=== PATIENT | female | born 2000 | race Caucasian/White ===

== ENCOUNTER → 2019-08-25 | Outpatient (CLI) | payer SELFPAY ==
--- NOTE | 2019-08-25 15:32 | RADIOLOGY REPORT (SQ) ---
EXAM DESCRIPTION: U/S OB LIMITED COMPLETED DATE/TIME: 08/25/2019 3:20 pm REASON FOR STUDY: Z34.01 ENCNTR FOR SUPRVSN OF NORMAL FIRST PREG Z34.01 ENCNTR FOR SUPRVSN OF DOMINIC L FIRST PREG, FIRST TRIMES COMPARISON: None. TECHNIQUE: Limited transabdominal grayscale ultrasound for evaluation of specific requested obstetri ev parameters. LIMITATIONS: None. FINDINGS: CERVICAL LENGTH: 3.4 cm. Closed. LV P: 2.2 x 2.4 cm. Cm. FHR: 160 beats per minute. PRESENTATION: Variable PLACENTA: Posterior, grade 1. ANATOMY: Not assessed OTHER: There is a live intrauterine gestation of 14 weeks 0 days with an estimated date of delivery o f 02/23/2020 IMPRESSION: LIMITED OBSTETRICAL ULTRASOUND WITH MEASURED PARAMETERS DELINEATED ABOVE. Trimester of : Second trimester - 13 weeks 1 day to 27 weeks 6 days. TECHNICAL DOCUMENTATION: JOB ID: [id number] [employer]- All Rights Reserved Reading location - IP/workstation name: [email or web address]
== END ==
LOC: RAD 14:33
PROVIDERS: ATTEND Midwife
DX: Z34.02 Encounter for supervision of normal first pregnancy, second trimester (principal)
CPT/HCPCS: 76815

== ENCOUNTER 2020-02-02 07:58 | Inpatient (IN) | payer MEDICAID ==
[2020-02-02] MEDS ORDERED: DINOPROSTONE 10 MG VAGINAL INSERT.SR PV ONE (08:42)
[2020-02-02] MEDS ORDERED: MAG HYDROX/AL HYDROX/SIMETH SUSP 30 ML UDCUP PO PRN (08:42)
[2020-02-02] MEDS ORDERED: ACETAMINOPHEN 325 MG TABLET PO PRN (08:42)
[2020-02-02 08:52] LABS: ABSOLUTE EOSINOPHILS # (AUTO) 0.1 10^3/uL (0.0-0.6); ABSOLUTE LYMPHOCYTES (AUTO) 1.9 10^3/uL (0.5-4.7); ABSOLUTE MONOCYTES (AUTO) 1.1 10^3/uL (0.1-1.4); ABSOLUTE NEUT (AUTO) 9.7 10^3/uL (1.7-8.2); BASOPHILS % (AUTO) 0.4 % (0-2); EOSINOPHILS % (AUTO) 0.8 % (0-6); HEMATOCRIT 30.2 % (36.0-47.0); HEMOGLOBIN 11.1 g/dL (12.0-15.5); LYMPHOCYTES % (AUTO) 14.5 % (13-45); MEAN CORPUSCULAR HEMOGLOBIN 33.4 pg (27.0-33.4); MEAN CORPUSCULAR HGB CONC 36.8 g/dL (32.0-36.0); MEAN CORPUSCULAR VOLUME 91 fl (80-97); MONOCYTES % (AUTO) 8.3 % (3-13); PLATELET COUNT 261 10^3/uL (150-450); RED BLOOD COUNT 3.33 10^6/uL (3.72-5.28); RED CELL DISTRIBUTION WIDTH 13.3 % (11.5-14.0); TOTAL CELLS COUNTED % (AUTO) 100 %; WHITE BLOOD COUNT 12.8 10^3/uL (4.0-10.5)
--- NOTE | 2020-02-02 08:53 | Admission Physical ---
Datetime Report Generated by CPN: 02/02/2020 08:53 CURRENT ADMISSION Chief Complaint: Other Chief Complaint Other: IUFD- IOL Indication for Induction: Demise Admit Impression : , Intrauterine ; Intact Membranes; Induction of Labor Admit Plan: Admit to Unit; Initiate Labor Induction Protocol ALLERGIES Medication Allergies: No Medication Allergies: No Known Drug Allergies (02/02/2020) Latex: No Latex Allergies OBSTETRICAL HISTORY : 1 Para: 0 Term: 0 : 0 SAB: 0 IAB: 0 Ectopic: 0 Livin Cesareans: 0 VBACs: 0 Multiple Births: 0 Gestational Diabetes: No Rh Sensitization: No Incompetent Cervix: No SANDRINE: No Infertility: No ART Treatment: No Uterine Anomaly: No IUGR: No Hx Previous C/S: No Macrosomia: No Hx Loss/Stillborn: No PIH: No Hx : No Placenta Previa/Abruption: No Depression/PP Depression: No PTL/PROM: No Post Hemorrhage: No Current Procedures: Ultrasound Obstetrical History Comments: G1-Current IUFD SEE RECORDS Alcohol: No Marijuana : No Cocaine: No Other Illicit Drugs: No Cigarettes: Current Everyday Smoker. [id number] Cigarette Frequency: 5 - 10 per day Cigarette Comments: 1/2 ppd MEDICAL HISTORY Diabetes: No Blood Transfusion: No Pulmonary Disease (Asthma, TB): No Breast Disease: No Hypertension: No Teachers Aide Surgery: No Heart Disease: No Hosp/Surgery: Yes Autoimmune Disorder: No Anesthetic Complications: No Kidney Disease: No Abnormal Pap Smear: No Neuro/Epilepsy: No Psychiatric Disorders: No Other Medical Diseases: No Hepatitis/Liver Disease: No Significant Family History: No Varicosities/Phlebitis: No Trauma/Violence : No Thyroid Dysfunction: No Medical History Comments: Hospitalized for intestinal infection INFECTIOUS HISTORY Gonorrhea: No Genital Herpes: No Chlamydia: No Tuberculosis: No Syphilis: No Hepatitis: No HIV/AIDS Exposure: No Rash or Viral Illness: No HPV: No PHYSICAL EXAM General: Normal HEENT: Normal Neurologic: Normal Thyroid: Normal Heart: Normal Lungs: Normal Breast: Normal Back: Normal Abdomen: Normal Genitourinary Exam: Normal Extremities: Normal DTRs: Normal Pelvic Type: Adequate Vital Signs: Reviewed VAGINAL EXAM Dilatation: 1 Effacement: 25 Station: -3 Contraction Comments: 0 MEMBRANES Membranes: Intact FETUS A Admit Comment: 19 y/o presents for IOL and IUFD at 36 wks. Pt seen in the office yesterday, c/o decreased FM x one week. No FHT's noted yesterday. Pt denies vaginal bleeding or leaking of fluid or contractions. Pt has her mother here today as a support person. VE /th/ -3, vtx. Attending MD is Dr Contreras today PLANS FOR LABOR AND DELIVERY Labor and Delivery: None Pain Management: None Circumcision: N/A INFORMED CONSENT Assignment: Abi Contreras MD Signature: with User ID: [email or web address] : with User ID: [email or web address]
[2020-02-02 09:12] LABS: APPEARANCE,URINE CLOUDY; BILIRUBIN,URINE NEGATIVE (NEGATIVE); GLUCOSE, URINE NEGATIVE (NEGATIVE); KETONES,URINE TRACE mg/dL (NEGATIVE); LEUKOCYTE ESTERASE,URINE LARGE (NEGATIVE); NITRITE,URINE NEGATIVE (NEGATIVE); PROTEIN,URINE 100 mg/dL (NEGATIVE); URINE SPECIFIC GRAVITY 1.027
[2020-02-02] MEDS ORDERED: MISOPROSTOL 0.1 MG TABLET ONE ×3 (09:12→17:18)
[2020-02-02] MEDS ORDERED: MISOPROSTOL 0.2 MG TABLET ONE ×2 (09:12→09:19)
[2020-02-02 09:13] LABS: COLOR,URINE DARK YELLOW
[2020-02-02] MEDS ORDERED: MISOPROSTOL 0.2 MG TABLET PO SCH (09:15)
[2020-02-02] MEDS: RINGERS SOLUTION,LACTATED 1,000 ML IV PRN ×2 (09:17→14:19)
[2020-02-02 09:20] LABS: URINE AMPHETAMINES SCREEN NEGATIVE; URINE BARBITURATES SCREEN NEGATIVE; URINE BENZODIAZEPINES SCREEN NEGATIVE; URINE COCAINE SCREEN NEGATIVE; URINE MARIJUANA (THC) SCREEN NEGATIVE; URINE METHADONE SCREEN NEGATIVE; URINE PHENCYCLIDINE SCREEN NEGATIVE
[2020-02-02] MEDS ORDERED: NALBUPHINE HCL INJ 10 MG/1 ML AMPULE ONE ×3 (10:26→18:33)
[2020-02-02] MEDS ORDERED: NALBUPHINE HCL INJ 10 MG/1 ML AMPULE INJ ONE ×3 (10:28→18:28)
[2020-02-02] MEDS: MISOPROSTOL 0.1 MG TABLET PO SCH ×2 (13:29→17:23)
[2020-02-02] MEDS ORDERED: EPHEDRINE SULFATE INJ 50 MG/1 ML AMPULE ONE (19:51)
[2020-02-02] MEDS ORDERED: FENTANYL/BUPIVACAINE/NS/PF 300 MCG/150 ML RTUINJ EPI ONE (19:52)
[2020-02-02] MEDS ORDERED: BUPIVACAINE HCL 0.25 % INJ/PF (2.5 MG/1 ML) 30 ML VIAL ONE (19:52)
[2020-02-02] MEDS ORDERED: ZOLPIDEM TARTRATE 5 MG TABLET ONE (21:10)
[2020-02-03] MEDS ORDERED: OXYTOCIN 10 UNIT/ML VIAL ONE (03:17)
[2020-02-03] MEDS ORDERED: MISOPROSTOL 0.2 MG TABLET ONE (03:17)
[2020-02-03] MEDS ORDERED: OXYTOCIN/NORMAL SALINE 20 UNIT/1,000 ML RTUINJ ONE (03:18)
[2020-02-03] MEDS ORDERED: LIDOCAINE 1% INJ-PF (10 MG/ML) 30 ML SDV ONE (03:18)
[2020-02-03] MEDS ORDERED: MAGNESIUM HYDROXIDE SUSP 30 ML UDCUP PO PRN (04:55)
[2020-02-03] MEDS ORDERED: ACETAMINOPHEN WITH CODEINE #3 TABLET PO PRN ×2 (04:55)
[2020-02-03] MEDS ORDERED: OXYTOCIN/NORMAL SALINE 20 UNIT/1,000 ML RTUINJ IV PRN (04:55)
[2020-02-03] MEDS ORDERED: MEASLES,MUMPS&RUBELLA VACC/PF 0.5 ML VIAL SUBCUT PRN (04:55)
[2020-02-03] MEDS ORDERED: BENZOCAINE/MENTHOL AEROSOL SPRAY 56 ML TOP PRN (04:55)
[2020-02-03] MEDS ORDERED: PROMETHAZINE HCL 25 MG SUPP.RECT PR PRN (04:55)
[2020-02-03] MEDS ORDERED: PSEUDOEPHEDRINE HCL 30 MG TABLET PO PRN (04:55)
[2020-02-03] MEDS ORDERED: PROMETHAZINE HCL 25 MG TABLET PO PRN (04:55)
[2020-02-03] MEDS ORDERED: ACETAMINOPHEN 650 MG SUPP.RECT PR PRN (04:55)
[2020-02-03] MEDS ORDERED: NA PHOS,M-B/NA PHOS,DI-BA (ADULT) 133 ML ENEMA PR PRN (04:55)
[2020-02-03] MEDS ORDERED: ZOLPIDEM TARTRATE 5 MG TABLET PO PRN (04:55)
[2020-02-03] MEDS ORDERED: PROMETHAZINE HCL INJ 25 MG/1 ML VIAL IV PRN (04:55)
[2020-02-03] MEDS ORDERED: DIPH/PERTUSS(ACELL)/TETANUS VAC/PF 0.5 ML SYR (>=10YO) IM PRN (04:55)
[2020-02-03] MEDS ORDERED: GLYCERIN/WITCH HAZEL LEAF 1 EACH MED..WIPE TP PRN (04:55)
[2020-02-03] MEDS ORDERED: DIPHENHYDRAMINE HCL 25 MG CAPSULE PO PRN (04:55)
[2020-02-03] MEDS ORDERED: DIBUCAINE 1% OINTMENT 28 GM TP PRN (04:55)
[2020-02-03] MEDS ORDERED: IBUPROFEN 800 MG TABLET PO SCH (06:00)
[2020-02-03] MEDS ORDERED: IBUPROFEN 800 MG TABLET ONE (06:10)
--- NOTE | 2020-02-03 06:32 | Delivery Summary ---
Del Sum A-C Datetime Report Generated by CPN: 02/03/2020 06:31 DELIVERY PERSONNEL DELIVERY PERSONNEL: [id number] Delivery Doctor:: Abi Contreras MD Labor and Delivery Nurse:: Park Mendiola RNhealth sciences department chair Nurse:: Peggy Du RN MATERNAL INFORMATION Delivery Anesthesia: Epidural Medications After Delivery: Pitocin Drip 20 Units/1000ml NSS Estimated Blood Loss (ml): 250 Maternal Complications: None Provider Comments: Called to room as patient was completely dilated with urge to push. Pushed through one contraction and delivered a non-viable baby girl. Cord doubly clamped and cut. Placenta delivered shortly there after. EBL 250 cc. Fundus firm. LABOR SUMMARY EDC: 02/24/2020 00:00 No. Babies in Womb: 1 Attempted: No Labor Anesthesia: Epidural LABOR INFORMATION Reason for Induction: Demise Onset of Labor: 02/03/2020 02:40 Complete Dilatation: 02/03/2020 04:15 Cervical Ripening Agents: Other Oxytocin: Induction Group B Beta Strep: unknown Antibiotics # of Doses: n/a Steroids Given: None Reason Steroids Not Administered: Not Applicable MEMBRANES Membranes Rupture Method: Spontaneous Rupture of Membranes: 02/03/2020 04:15 Length of Rupture (hr): 0.12 Amniotic Fluid Color: Bloody Amniotic Fluid Amount: Large Amniotic Fluid Odor: Foul STAGES OF LABOR Stage 1 hr: 1 Stage 1 min: 35 Stage 2 hr: 0 Stage 2 min: 7 Stage 3 hr: 0 Stage 3 min: 5 Total Time in Labor hr: 1 Total Time in Labor min: 47 VAGINAL DELIVERY Episiotomy: None Laceration Extension #1: First Degree Laceration Repair: Yes Laceration Repair Note: 3-0 chromic on an SH needle Sponge Count Correct: N/A CSECTION DELIVERY Primary Indication: N/A Secondary Indication: N/A CSection Incidence: N/A Labor: N/A Elective: N/A CSection Incision: N/A BABY A INFORMATION Delivery Date/Time: 02/03/2020 04:22 Method of Delivery: Vaginal Nurse Controlled Delivery: No Born in Route : No : N/A Forceps: N/A Vacuum Extraction: N/A Shoulder Dystocia : No PRESENTATION/POSITION BABY A Presentation: Cephalic Cephalic Presentation: Vertex Vertex Position: Left Occipital Anterior Breech Presentation: N/A PLACENTA INFORMATION BABY A Placenta Delivery Time : 02/03/2020 04:27 Placenta Method of Delivery: Spontaneous Placenta Status: Delivered SCORES BABY A Heart Rate 1 min: Absent Resp Effort 1 min: Absent Reflex Irritability 1 min: No Response Muscle Tone 1 min: Flaccid Color 1 min: Blue/Pale SCORE 1 MIN: 0 INFANT INFORMATION BABY A Gestational Age at Delivery: 37.0 Gestational Status: Early Term- 37- 38.6 Weeks Outcome : Stillborn Sex: Female WEIGHT/LENGTH BABY A Infant Birthweight (gm): 2298 Weight (lb): 5 Weight (oz): 1 Length (in): 18.50 Length (cm): 46.99 CORD INFORMATION BABY A No. Cord Vessels: 3 Nuchal Cord : Around Neck x1, Tight Cord Blood Taken: Yes-For Eval (Mom's Blood Type - or O+) (Annotations: Data stored by [facility] on behalf of user) Suction: None BABY B INFORMATION : N/A SIGNATURES Signature: with User ID: [email or web address] : with User ID: [email or web address]
[2020-02-03] MEDS: MISOPROSTOL 0.1 MG TABLET PO SCH (08:06)
[2020-02-03] MEDS ORDERED: BENZOCAINE/MENTHOL AEROSOL SPRAY 56 ML ONE (08:10)
--- NOTE | 2020-02-03 08:26 | PDOC DISCHARGE SUMMARY ---
Impression - Admit/DC Date/PCP Admission Date/Primary Care Provider: 02/02/20 07:58 STEVE FRASER CNM Discharge Date: 02/03/20 - Delivered IUFD overnight. Pt doing well this morning, Desires to go home today. UOB, voiding. Pt is O negative, needs Rhogam prior to d/c home - Discharge Diagnosis (1) Rh negative status during in third trimester Is this a current diagnosis for this admission?: Yes (2) (normal spontaneous vaginal delivery) Is this a current diagnosis for this admission?: Yes (3) 36 to 37 weeks gestation of Is this a current diagnosis for this admission?: Yes (4) IUFD at 20 weeks or more of gestation Is this a current diagnosis for this admission?: Yes - Additional Information Resuscitation Status: Full Code Discharge Diet: As Tolerated, Regular Discharge Activity: Activity As Tolerated, No Lifting Over 10 Pounds, Pelvic Rest Referrals: STEVE FRASER CNM [Primary Care Provider] - Prescriptions: Ibuprofen [Motrin 800 mg Tablet] 800 mg PO Q8 #60 tablet Home Medications: Ibuprofen [Motrin 800 mg Tablet] 800 mg PO Q8 #60 tablet 02/03/20 HPI Reason(s) for Admission: Induction of Labor, Demise Procedures: Ultrasound Intrapartum Procedure(s): Spontaneous Vaginal Delivery Results Laboratory Results: WBC 12.8 10^3/uL (4.0-10.5) H 02/02/20 08:40 RBC 3.33 10^6/uL (3.72-5.28) L 02/02/20 08:40 Hgb 11.1 g/dL (12.0-15.5) L 02/02/20 08:40 Hct 30.2 % (36.0-47.0) L 02/02/20 08:40 MCV 91 fl (80-97) 02/02/20 08:40 MCH 33.4 pg (27.0-33.4) 02/02/20 08:40 MCHC 36.8 g/dL (32.0-36.0) H 02/02/20 08:40 RDW 13.3 % (11.5-14.0) 02/02/20 08:40 Plt Count 261 10^3/uL (150-450) 02/02/20 08:40 Lymph % (Auto) 14.5 % (13-45) 02/02/20 08:40 [place] % (Auto) 8.3 % (3-13) 02/02/20 08:40 Eos % (Auto) 0.8 % (0-6) 02/02/20 08:40 Baso % (Auto) 0.4 % (0-2) 02/02/20 08:40 Absolute Neuts (auto) 9.7 10^3/uL (1.7-8.2) H 02/02/20 08:40 Absolute Lymphs (auto) 1.9 10^3/uL (0.5-4.7) 02/02/20 08:40 Absolute Monos (auto) 1.1 10^3/uL (0.1-1.4) 02/02/20 08:40 Absolute Eos (auto) 0.1 10^3/uL (0.0-0.6) 02/02/20 08:40 Absolute Basos (auto) 0.0 10^3/uL (0.0-0.2) 02/02/20 08:40 Seg Neutrophils % 76.0 % (42-78) 02/02/20 08:40 Urine Color DARK YELLOW 02/02/20 08:06 Urine Appearance CLOUDY 02/02/20 08:06 Urine pH 6.0 (5.0-9.0) 02/02/20 08:06 Ur Specific [place] 1.027 02/02/20 08:06 Urine Protein 100 mg/dL (NEGATIVE) H 02/02/20 08:06 Urine Glucose (UA) NEGATIVE mg/dL (NEGATIVE) 02/02/20 08:06 Urine Ketones TRACE mg/dL (NEGATIVE) H 02/02/20 08:06 Urine Blood NEGATIVE (NEGATIVE) 02/02/20 08:06 Urine Nitrite NEGATIVE (NEGATIVE) 02/02/20 08:06 Urine Bilirubin NEGATIVE (NEGATIVE) 02/02/20 08:06 Urine Urobilinogen 2.0 mg/dL (<2.0) H 02/02/20 08:06 Ur Leukocyte Esterase LARGE (NEGATIVE) H 02/02/20 08:06 Urine WBC (Auto) 123 /HPF 02/02/20 08:06 Urine RBC (Auto) 8 /HPF 02/02/20 08:06 Urine Bacteria (Auto) 2+ /HPF 02/02/20 08:06 Squamous Epi Cells Auto 15 /HPF 02/02/20 08:06 Urine Mucus (Auto) MANY /LPF 02/02/20 08:06 Urine Ascorbic Acid NEGATIVE (NEGATIVE) 02/02/20 08:06 Urine Opiates Screen NEGATIVE 02/02/20 08:06 Urine Methadone Screen NEGATIVE 02/02/20 08:06 Ur Barbiturates Screen NEGATIVE 02/02/20 08:06 Ur Phencyclidine Scrn NEGATIVE 02/02/20 08:06 Ur Amphetamines Screen NEGATIVE 02/02/20 08:06 U Benzodiazepines Scrn NEGATIVE 02/02/20 08:06 Urine Cocaine Screen NEGATIVE 02/02/20 08:06 U Marijuana (THC) Screen NEGATIVE 02/02/20 08:06 RPR NONREACTIVE (NONREACTIVE) 02/02/20 08:40 Blood Type O NEGATIVE 02/02/20 08:40 Antibody Screen POSITIVE 02/02/20 08:40 Antibody Identification RHOGAM INDUCED ANTI-D 02/02/20 08:40 Plan Plan of Treatment: d/c to home, pt to f/up with [facility] in 2-4 wks. PPD symptoms reviewed. Time Spent: Less than 30 Minutes
[2020-02-03] MEDS ORDERED: SENNOSIDES/DOCUSATE 8.6-50 MG 1 EACH TABLET ONE (09:55)
[2020-02-03] MEDS ORDERED: DOCUSATE SODIUM 100 MG CAPSULE ONE (09:55)
[2020-02-03] MEDS ORDERED: PRENATAL VITAMIN W DHA CAPSULE PO ONE (09:55)
[2020-02-03] MEDS ORDERED: FERROUS SULFATE 325 MG TABLET PO ONE (09:55)
[2020-02-03] MEDS ORDERED: FERROUS SULFATE 325 MG TABLET PO SCH (10:00)
[2020-02-03] MEDS ORDERED: SENNOSIDES/DOCUSATE 8.6-50 MG 1 EACH TABLET PO SCH (10:00)
[2020-02-03] MEDS ORDERED: DOCUSATE SODIUM 100 MG CAPSULE PO SCH (10:00)
[2020-02-03] MEDS ORDERED: FAMOTIDINE 20 MG TABLET PO SCH (10:00)
[2020-02-03] MEDS ORDERED: PRENATAL VITAMIN W DHA CAPSULE PO SCH (10:00)
[2020-02-03 13:20] VITALS: BP 129/59
== END 2020-02-03 13:40 | disposition home or self-care (01) | DRG 807 ==
LOC: LR 07:58
PROVIDERS: ADMIT Obstetrics & Gynecology; ATTEND Obstetrics & Gynecology
PROC: 10E0XZZ Delivery of Products of Conception, External Approach (ICD-10-PCS; principal; 2020-02-03)
PROC: 0HQ9XZZ Repair Perineum Skin, External Approach (ICD-10-PCS; 2020-02-03)
PROC: 3E0234Z Introduction of Serum, Toxoid and Vaccine into Muscle, Percutaneous Approach (ICD-10-PCS; 2020-02-03)
DX: O36.4XX0 Maternal care for intrauterine death, not applicable or unspecified (principal); Z37.1 Single stillbirth; O69.1XX0 Labor and delivery complicated by cord around neck, with compression, not applicable or unspecified; O70.0 First degree perineal laceration during delivery; O99.334 Smoking (tobacco) complicating childbirth; F17.210 Nicotine dependence, cigarettes, uncomplicated; Z3A.36 36 weeks gestation of pregnancy
CPT/HCPCS: 1967; 36415; 80307; 81001; 85025; 86592; 86850; 86870; 86900; 86901; 87070; 87077; 87186; 87205; 88307; J2300; J2590; J2790; J3010; J3490